=== PATIENT | female | born 1960 | race Caucasian/White ===

== ENCOUNTER 2025-03-06 15:29 | Emergency (ER) | payer MEDICARE, SELFPAY ==
[2025-03-06 15:33] VITALS: BP 161/90; PULSE 100; RESP 16; TEMP 36.6; O2SAT 98
--- OUTSIDE RECORDS SUMMARY | 2025-03-06 16:46 | XMS_ITS | Continuity of Care Document ---
Author Organization [facility] Address [id number] [place] [address] [address] [place] [address] Phone Care Team Providers Care Wire Threader Name Role Phone Celeste OD, Jose Unavailable Unavailable Advance Directives Directive Yes / No Effective Date File Name No Information Encounters Encounter Description Practice Location Reason(s) For Visit Diagnoses Date Provider Providers Copied on Encounter [facility], [address], [place], [place], [id number], [place] tel:[phone] [facility] No Information Dec-0 7-200 6 Celeste OD Jose. [address] , [address], [place], [address], [place]. tel:[phone] Family History Family Member Type Diagnosis Age At Onset No Information Payers Payer name Insurance type Covered constitution party ID Authoriza tion(s) No Information Social History Type Description Quantity Date Captured Comments Sex Female Smoking Status No Information Chief Complaint And Reason For Visit No Information Reason For Referral Reason For Referral No Information History Of Present Illness Encounter Date Complaint History Of Prese nt Illness No Information Functional Status Date Functional Assessmen t No Information Instructions Date Instruction Additional Infor mation No Information Assessments Type Assessment Date No Information Patient Care Teams Name Effective Dates (start - stop) Status Members No Information
--- OUTSIDE RECORDS SUMMARY | 2025-03-06 16:46 | XMS_ITS | Clinical Summary ---
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 Gender Identity Not on file Sexual Orientation Not on file Plan of Treatment Health Maintenance Due Date Last Done Comments DEXA Bone Density 1959 Hepatitis C Virus (HCV) Screening 1959 TdaP Immunization 1959 Pap Smear 1980 Cervical Cancer Screening (CCS) 1989 HPV/Cotest 1989 Colonoscopy 2004 Colorectal Cancer Screening 2004 Cologuard 2009 Immunochemical Fecal Occult Blood 2009 Mammogram 2009 Pneumococcal Immunization (5 0+ years) (1 of 1 - PCV) 2009 Zoster Immunization (1 of 2) 2009 Influenza Immunization (#1) 2024 SARS-COV-2 Immunization (2023- season) 2024 Respiratory Syncytial Virus (RSV) Immunization (Adult) (1 - 1-dose 75+ series) 2034 Hepatitis B Immunization Aged Out No longer eligible based on patient's age to complete this topic Meningococcal Immunization (ACWY) Aged Out No longer eligible based on patient's age to complete this topic Rotavirus Immunization Aged Out No lo nger eligible based on patient's age to complete this topic
--- NOTE | 2025-03-06 17:29 | PC.NURSE ---
Pt wanting to leave. Pt made aware EDP will be in as soon as possible. Pt verbalizes understanding.
[2025-03-06 17:39] VITALS: BP 146/89; PULSE 91; RESP 18; TEMP 36.7; O2SAT 98
--- NOTE | 2025-03-06 17:44 | ED.SKABFB ---
HPI - Skin/Abscess/Foreign Bdy General Chief complaint: Skin/Abscess/Foreign Body Stated complaint: hives Time Seen by Provider: 03/06/25 17:27 History of Present Illness HPI narrative: 64-year-old female with history of thyroid disease and asthma presents to the emergency department for a rash that started at 12:00 p.m. today. Patient states she noticed a bug bite to her right posterior hip around 12 in the rash to her lower back extending to her upper back. She states she was reading articles online and read that she should be evaluated at the emergency department. She states the rash is not itchy or painful. She took a Benadryl upon arrival to the ED and states the rash is improving. She is up-to-date on her Tdap did not see above bite her. She denies lip or tongue swelling, difficulty breathing, abdominal pain, nausea or vomiting. She has no known allergies. Denies new detergents, lotions, medications. Related Data Allergies Allergy/AdvReac Type Severity Reaction Status Date / Time No Known Allergies Allergy Unverified 11/01/24 14:08 Review of Systems Review of Systems: All systems reviewed & are unremarkable except as noted in HPI and below PMFSH Past Medical History Medical History Asthma Family History Family History Grandparent Family history of malignant neoplasm of breast Mother Asthma Disorder of thyroid Father Patient's father is in good health Sibling Patient's sister is in good health Patient's brother is in good health Social History Social History Smoking status: Former smoker Smoking end date: 11/28/83 Alcohol intake: current Substance use type: does not use Do You Feel Safe in your Home?: Yes Living arrangements: with family Occupation/Education: retired Gender identity (if verbalized by the patient): Female Agree to blood products: No Exam Narrative: GENERAL: Well-appearing, well-nourished, and in no acute distress. HEAD: Normocephalic, atraumatic. EYES: PERRLA and EOMI. ENT: Nares clear, no rhinorrhea or epistaxis. Mucous membranes moist. No lip or tongue swelling, no uvular edema, no airway compromise. NECK: Supple. CHEST: Clear to auscultation. No respiratory distress. HEART: Regular rate and rhythm. No murmur heard. Normal peripheral pulses. ABDOMEN: Soft, nontender, nondistended, normal active bowel sounds. EXTREMITIES: Normal range of motion. No edema. SKIN: Less than 0.25 cm bite to the right posterior hip with excoriations, maculopapular rash with wheals to the lower back extending superiorly to the midback with excoriations. No rashes remainder of exposed skin. No discrimination, negative Nikolsky sign, no vesicles or bullae NEURO: No focal deficits. Alert and oriented x3 Course Vital Signs Vital signs: Vital Signs Temperature 97.8 F 03/06/25 15:33 Pulse Rate 100 03/06/25 15:33 Respiratory Rate 16 03/06/25 15:33 Blood Pressure 161/90 H 03/06/25 15:33 Pulse Oximetry 98 03/06/25 15:33 Oxygen Delivery Room Air 03/06/25 15:33 Temperature 98.0 F 03/06/25 17:39 Pulse Rate 91 03/06/25 17:39 Respiratory Rate 18 03/06/25 17:39 Blood Pressure 146/89 H 03/06/25 17:39 Pulse Oximetry 98 03/06/25 17:39 Oxygen Delivery Room Air 03/06/25 17:39 MDM - Skin/Abscess/Foreign Bdy MDM Narrative Medical decision making narrative: 64-year-old female presents emergency department with concerns for bug bite and rash that started at 12:00 p.m. today. Vitals with elevated blood pressure, otherwise unremarkable. Exam is significant for a small what appears to be possible bite to the right posterior hip. There is a macular rash with wheals to the lower back extending to the mid back with overlying excoriations. Patient has no signs of anaphylaxis, no lip or tongue edema, no airway compromise, and no uvular hydrops, no abdominal pain or N/V. Her rash is improved upon arrival to the ED after taking a Benadryl. Her Tdap is up-to-date. Will start her on Benadryl, Pepcid and steroids for presumed allergic dermatitis and have her follow-up with her PCP. Discussed strict ED return precautions including signs of anaphylaxis, worsening rash, secondary infection. She and her are agreeable to plan verbalized understanding. Patient left the department prior to receiving discharge paperwork. Discharge Plan Discharge Clinical Impression: Dermatitis Patient Disposition: Home Condition: Stable Patient Language: [place] Prescriptions: New methylprednisolone [Medrol (Armaan)] 4 mg tablets,dose pack See Rx Instructions PO .COMPLEX Qty: 21 0RF Rx Instructions: orally per package directions diphenhydramine HCl 25 mg capsule 25 mg PO TID PRN (Reason: allergic reaction) Qty: 14 0RF famotidine 20 mg tablet 20 mg PO DAILY Qty: 14 0RF No Action phentermine 37.5 mg tablet 37.5 mg PO DAILY Qty: 30 1RF Rx Instructions: must administer 30 minutes before or 1-2 hours after breakfast Follow-up/Referrals: Irina Maldonado APRN [Primary Care Provider] -
--- OUTSIDE RECORDS SUMMARY | 2025-03-06 17:53 | XMS_ITS | Continuity of Care Document ---
Author Organization [facility] Address [id number] [place] [address] [address] [place] [address] Phone Care Team Providers Care Scheduling Analyst Name Role Phone Celeste OD, Jose Unavailable Unavailable Advance Directives Directive Yes / No Effective Date File Name No Information Encounters Encounter Description Practice Location Reason(s) For Visit Diagnoses Date Provider Providers Copied on Encounter [facility], [address], [place], [place], [id number], [place] tel:[phone] [facility] No Information Dec-0 7-200 6 Celeste OD Jose. [address] , [address], [place], [address], [place]. tel:[phone] Family History Family Member Type Diagnosis Age At Onset No Information Payers Payer name Insurance type Covered libertarian ID Authoriza tion(s) No Information Social History [...]
--- OUTSIDE RECORDS SUMMARY | 2025-03-06 17:53 | XMS_ITS | Clinical Summary ---
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
--- NOTE | 2025-03-06 18:01 | PC.NURSE ---
pt room found to be empty. pt left before letting this RN of leaving. pt was not given discharge information
== END 2025-03-06 18:03 | disposition home or self-care (01) ==
PROVIDERS: Emergency Provider Physician Assistant; PCP Nurse Practitioner Adult Health
DX: L30.9 Dermatitis, unspecified (principal); J45.909 Unspecified asthma, uncomplicated
CPT/HCPCS: 99283